=== PATIENT | male | born 1945 | race Caucasian/White ===

== ENCOUNTER 2016-12-25 18:22 | Outpatient (CLI) | payer OTHER | END 2016-12-25 18:23 | disposition home or self-care (01) | DX: C61 Malignant neoplasm of prostate (principal) ==

== ENCOUNTER 2017-12-29 09:05 | Outpatient (CLI) | payer MEDICARE, OTHER ==
[2017-12-29 09:42] LABS: HB2 TOTAL 16.6 g/dL; HEMOGLOBIN A1C 0.64 g/dL; HEMOGLOBIN A1C % 5.7 % (4.6-6.2)
[2017-12-29 09:53] LABS: ALBUMIN 4.3 g/dL (3.2-5.5); ALBUMIN/GLOBULIN RATIO 1.7 (1.0-2.2); ALKALINE PHOSPHATASE 29 IU/L (42-121); ALT ALANINE AMINOTRANSFERASE 17 IU/L (10-60); AST ASPARTATE AMINOTRANSFERASE 22 IU/L (10-42); BILIRUBIN,TOTAL 1.7 mg/dL (0.2-1.0); BUN - BLOOD UREA NITROGEN 15 mg/dL (6-20); CALCIUM 9.3 mg/dL (8.5-10.3); CARBON DIOXIDE - CO2 23 mmol/L (21-32); CHLORIDE 106 mmol/L (101-111); CHOL/HDL RATIO 4.1 (<5.0); CHOLESTEROL 172 mg/dL; CREATININE 1.1 mg/dL (0.6-1.2); GFR - MDRD 66 (>89); GLUCOSE 117 mg/dL (70-100); HDL CHOLESTEROL 42 mg/dL; LDL CHOLESTEROL,CALCULATED 118 mg/dL; LDL/HDL RATIO 2.8 (<3.6); SODIUM 137 mmol/L (135-145); TOTAL PROTEIN 6.9 g/dL (6.7-8.2); VLDL CHOLESTEROL 12 mg/dL
== END 2017-12-29 09:06 | disposition home or self-care (01) ==
LOC: LAB 09:05
PROVIDERS: ATTEND Family Medicine
DX: I10 Essential (primary) hypertension (principal); E03.9 Hypothyroidism, unspecified; R73.9 Hyperglycemia, unspecified; C61 Malignant neoplasm of prostate
CPT/HCPCS: 36415; 80053; 80061; 83036; 83721; 84153; 84443

== ENCOUNTER 2018-07-18 10:52 | Outpatient (CLI) | payer OTHER ==
[2018-07-18 19:15] LABS: HB2 TOTAL 17.6 g/dL; HEMOGLOBIN A1C 0.66 g/dL; HEMOGLOBIN A1C % 5.6 % (4.6-6.2)
[2018-07-18 19:24] LABS: ALBUMIN 4.4 g/dL (3.2-5.5); ALBUMIN/GLOBULIN RATIO 2.4 (1.0-2.2); ALKALINE PHOSPHATASE 34 IU/L (42-121); ALT ALANINE AMINOTRANSFERASE 23 IU/L (10-60); AST ASPARTATE AMINOTRANSFERASE 25 IU/L (10-42); BILIRUBIN,TOTAL 1.3 mg/dL (0.2-1.0); BUN - BLOOD UREA NITROGEN 19 mg/dL (6-20); CALCIUM 9.4 mg/dL (8.5-10.3); CARBON DIOXIDE - CO2 24 mmol/L (21-32); CHLORIDE 106 mmol/L (101-111); CHOLESTEROL 154 mg/dL; CREATININE 0.4 mg/dL (0.6-1.2); GFR - MDRD 213 (>89); GLUCOSE 116 mg/dL (70-100); HDL CHOLESTEROL 51 mg/dL; LDL CHOLESTEROL,CALCULATED 92 mg/dL; LDL/HDL RATIO 1.8 (<3.6); SODIUM 138 mmol/L (135-145); TOTAL PROTEIN 6.2 g/dL (6.7-8.2); VLDL CHOLESTEROL 11 mg/dL
== END 2018-07-18 10:53 | disposition home or self-care (01) ==
LOC: LAB.WCP 10:52
PROVIDERS: ATTEND Family Medicine
DX: R73.9 Hyperglycemia, unspecified (principal); I10 Essential (primary) hypertension; E03.9 Hypothyroidism, unspecified
CPT/HCPCS: 36415; 80053; 80061; 83036; 83721; 84443

== ENCOUNTER 2018-09-19 09:07 | Outpatient (CLI) | payer OTHER ==
[2018-09-19 15:16] LABS: BASOPHILS # (AUTO) 0.1 10^3/uL (0.0-0.1); BASOPHILS % (AUTO) 0.8 %; EOSINOPHILS # (AUTO) 0.2 10^3/uL (0.0-0.7); HGB - HEMOGLOBIN 15.7 g/dL (14.0-18.0); LYMPHOCYTES # (AUTO) 1.9 10^3/uL (1.5-3.5); MEAN CORPUSCULAR HEMOGLOBIN 32.5 pg (27.0-31.0); MEAN CORPUSCULAR HGB CONC 34.6 g/dL (32.0-36.0); MEAN CORPUSCULAR VOLUME 93.7 fL (80.0-94.0); MEAN PLATELET VOLUME 8.8 fL (7.4-11.4); MONOCYTES # (AUTO) 0.7 10^3/uL (0.0-1.0); MONOCYTES % (AUTO) 9.3 %; NEUTROPHILS % (AUTO) 62.9 %; PLT - PLATELET COUNT 201 10^3/uL (130-450); RED BLOOD COUNT 4.83 10^6/uL (4.70-6.10); RED CELL DISTRIBUTION WIDTH 14.1 % (12.0-15.0); WHITE BLOOD COUNT 7.9 x10^3/uL (4.8-10.8)
== END 2018-09-19 09:08 | disposition home or self-care (01) ==
LOC: LAB.WCP 09:07
PROVIDERS: ATTEND Internal Medicine Gastroenterology
DX: Z85.46 Personal history of malignant neoplasm of prostate (principal)
CPT/HCPCS: 36415; 85025

== ENCOUNTER 2018-09-29 09:14 | Day surgery (SDC) | payer OTHER ==
[2018-09-29] MEDS ORDERED: LACTATED RINGERS 1,000 ML IV ONE (09:41)
[2018-09-29] MEDS ORDERED: fentaNYL 250 MCG/5 ML VIAL IVP ONE (10:34)
[2018-09-29] MEDS ORDERED: MIDAZOLAM 2 MG/2 ML VIAL IVP ONE (10:34)
[2018-09-29 11:33] VITALS: BP 108/72
== END 2018-09-29 09:15 | disposition home or self-care (01) ==
LOC: SDS 09:14
PROVIDERS: ATTEND Internal Medicine Gastroenterology
PROC: 0DBN8ZZ Excision of Sigmoid Colon, Via Natural or Artificial Opening Endoscopic (ICD-10-PCS; 2018-09-29)
PROC: 0DBK8ZZ Excision of Ascending Colon, Via Natural or Artificial Opening Endoscopic (ICD-10-PCS; principal; 2018-09-29 10:30)
DX: Z12.11 Encounter for screening for malignant neoplasm of colon (principal); D12.2 Benign neoplasm of ascending colon; D12.5 Benign neoplasm of sigmoid colon; N40.1 Benign prostatic hyperplasia with lower urinary tract symptoms; N52.9 Male erectile dysfunction, unspecified; E03.9 Hypothyroidism, unspecified; Z85.46 Personal history of malignant neoplasm of prostate; Z87.891 Personal history of nicotine dependence
CPT/HCPCS: 45380; J3010; J7120

== ENCOUNTER 2018-12-13 10:58 | Emergency (ER) | payer OTHER ==
--- NOTE | 2018-12-13 11:15 | ED Physician Documentation ---
PD HPI UPPER EXT INJURY - Stated complaint Stated Complaint: R HAND FING INJ - Chief complaint Chief Complaint: Ext Problem - History obtained from History obtained from: Patient - History of Present Illness Location: Right, Finger (he fell and jammed fingertips into ground as he fell, with pain at index/middle/ring fingers but deformity and laceration at the middle one.) Where injury occurred: Other (hiking [place] trail) Timing - onset: Today Timing - details: Abrupt onset, Still present Worsened by: Moving Associated symptoms: No: Weakness, Numbness Contributing factors: No: Anticoagulated Similar symptoms before: Has not had sx before Recently seen: Not recently seen Review of Systems Skin: reports: Laceration (s) Neurologic: denies: Focal weakness, Numbness, Altered mental status, Head injury PD PAST MEDICAL HISTORY - Past Medical History Cardiovascular: None Respiratory: None : Benign prostate hypertrophy - Present Medications Home Medications: Ambulatory Orders Medication Instructions Recorded Confirmed Clotrimazole/Betamethasone Dip 15 gm TP BID PRN 09/28/18 09/28/18 [Clotrimazole-Betamethasone Crm] Tadalafil [Cialis] 20 mg PO ONCE PRN 09/28/18 09/28/18 Tamsulosin HCl [Flomax] 0.8 mg PO DAILY 09/28/18 09/29/18 Thyroid,Pork [[place] Thyroid] 30 mg PO DAILY 09/28/18 09/29/18 Cephalexin [Keflex] 500 mg PO QID #20 capsule 12/13/18 Hydrocodone/Acetaminophen [[place] 1 each PO Q6H PRN #15 tablet 12/13/18 5-325 Tablet] - Allergies Allergies/Adverse Reactions: Allergies Allergy/AdvReac Type Severity Reaction Status Date / Time No Known Drug Allergies Allergy Verified 09/28/18 14:12 PD ED PE NORMAL - Vitals Vital signs reviewed: Yes - General General: Alert and oriented X 3, Well developed/nourished, Other (finger is in pain) - Neck Neck: Supple, no meningeal sign, No adenopathy - Cardiac Cardiac: RRR, No murmur - Respiratory Respiratory: Clear bilaterally - Abdomen Abdomen: Soft, Non tender - Derm Derm: Normal color, Warm and dry - Extremities Extremities: Other (right fingers with deformity c/w dislocation at middle finger PIP joint. Open laceration with tendons visible volar crease of the joint. Tendons intact and are seen moving as he tries to flex. Good color and cap refill at tip. The nidex and ring fingers are tender at IP joints but have good ROM. ) - Neuro Neuro: Alert and oriented X 3, No motor deficit, No sensory deficit Results - Vitals Vitals: Oxygen O2 Source Room air - Rads (name of study) right middle finger Radiology: Prelim report reviewed (dislocation PIP with small avulsion fracture at corner. ) Procedures - Laceration (location) right middle finger Length in cm: 1.5 Wound type: Linear, Contaminated (there is some mild dirt noted on surface, which is cleansed and irrigated prior to finger reduction. It is cleansed and irrigated again prior to closure. There is good visibility of the flexor tendon and it is moving/intact with flex/ext after reduction of the dislocation. No contamination further seen.) Neurovascular status: Sensory intact, Motor intact Anesthesia: Marcaine 0.5% (digital block) Wound Preparation: Irrigated copiously NS, Wound explored, To the base Skin layer closure: Nylon, Running, Size #-0 - enter number (4) Other: Patient tolerated well, No complications, Neurovascular intact, Dressing applied, Tetanus UTD Complexity: Simple - Reduction Body part reduced: Right, Finger Fracture or dislocation: Dislocation Anesthesia: Digital block Reduction aftercare: NV intact, Alignment improved, Splint applied, Patient tolerated well PD MEDICAL DECISION MAKING - ED course Complexity details: reviewed results, considered differential, d/w patient Departure - Departure Disposition: 01 Home, Self Care Clinical Impression: Finger laceration Qualifiers: Encounter type: initial encounter Finger: middle finger Damage to nail status: without damage Foreign body presence: without foreign body Laterality: right Qualified Code(s): S61.212A - Laceration without foreign body of right middle finger without damage to nail, initial encounter Finger dislocation Qualifiers: Encounter type: initial encounter Qualified Code(s): S63.259A - Unspecified dislocation of unspecified finger, initial encounter Accidental fall Qualifiers: Encounter type: initial encounter Qualified Code(s): W19.XXXA - Unspecified fa ll, initial encounter Condition: Stable Record reviewed to determine appropriate education?: Yes Instructions: ED Dislocation Finger Redu Follow-Up: Janes Lentz MD [Primary Care Provider] - [facility] [Provider Group] Prescriptions: Cephalexin [Keflex] 500 mg PO QID #20 capsule Hydrocodone/Acetaminophen [[place] 5-325 Tablet] 1 each PO Q6H PRN #15 tablet PRN Reason: Pain Comments: Finger splint to protect that joint most of the time for the next month. You can have it unsplinted for showering and cleaning and when rested. Have it splinted for any times of activity to protect it. Use some ibuprofen or naproxen for inflammation and pain. Add Tylenol or hydrocodone if needed for pain. It should hurt the most over the first several days and then decrease. Cephalexin 4 times a day for 5 days to reduce the chance of infection. Follow- up with orthopedics in about a week, call tomorrow or today for an appointment. Want to make sure the ligaments are healing up well so that you have normal function. The tendons did not seem to be injured. It is okay to wash and shower. Clean off the wound twice a day with soap and water, or peroxide and water. Apply some antibiotic ointment to it to keep it moist. Also to watch for signs of infection such as purulence, redness or increasing pain. Return to your primary care or the ER at the specified time for suture removal. Suture removal 8-10 days Discharge Date/Time: 12/13/18 12:46
--- NOTE | 2018-12-13 11:39 | XRAY Report ---
Reason: fall injury, open dislocation Procedure Date: 12/13/2018 Accession Number: [id number] / [id number] Procedure: XR - Finger(s) RT CPT Code: FULL RESULT: EXAM: RIGHT THIRD DIGIT RADIOGRAPHY EXAM DATE: 12/13/2018 11:24 AM. CLINICAL HISTORY: Fall injury, open dislocation. COMPARISON: None. TECHNIQUE: 3 views. FINDINGS: Bones: The third proximal interphalangeal joint is subluxed with the distal phalanx superiorly translated, and laterally subluxed by 5 mm with overall 5 mm of foreshortening. Joints: Normal. No subluxations. Soft Tissues: Marked soft tissue swelling of the third digit. IMPRESSION: Known dislocation of the third digit as described. RADIA
[2018-12-13] MEDS ORDERED: cephALEXin 250 MG CAPSULE PO STA (12:06)
[2018-12-13 12:46] VITALS: BP 137/70
== END 2018-12-13 12:46 | disposition home or self-care (01) ==
LOC: ED 10:58
DX: S63.282A Dislocation of proximal interphalangeal joint of right middle finger, initial encounter (principal); S61.212A Laceration without foreign body of right middle finger without damage to nail, initial encounter; W01.0XXA Fall on same level from slipping, tripping and stumbling without subsequent striking against object, initial encounter; Y93.01 Activity, walking, marching and hiking; Y92.821 Forest as the place of occurrence of the external cause
CPT/HCPCS: 12001; 26770; 73140; 99283; A9270; 26605

== ENCOUNTER 2018-12-26 08:42 | Outpatient (CLI) | payer OTHER ==
[2018-12-26 13:23] LABS: BASOPHILS # (AUTO) 0.1 10^3/uL (0.0-0.1); BASOPHILS % (AUTO) 0.7 %; EOSINOPHILS # (AUTO) 0.3 10^3/uL (0.0-0.7); EOSINOPHILS % (AUTO) 3.2 %; HGB - HEMOGLOBIN 15.2 g/dL (14.0-18.0); LYMPHOCYTES # (AUTO) 1.7 10^3/uL (1.5-3.5); LYMPHOCYTES % (AUTO) 21.1 %; MEAN CORPUSCULAR HEMOGLOBIN 31.4 pg (27.0-31.0); MEAN CORPUSCULAR VOLUME 92.4 fL (80.0-94.0); MEAN PLATELET VOLUME 8.5 fL (7.4-11.4); MONOCYTES # (AUTO) 0.8 10^3/uL (0.0-1.0); MONOCYTES % (AUTO) 9.3 %; NEUTROPHILS # (AUTO) 5.4 10^3/uL (1.5-6.6); NEUTROPHILS % (AUTO) 65.7 %; PLT - PLATELET COUNT 218 10^3/uL (130-450); RED BLOOD COUNT 4.83 10^6/uL (4.70-6.10); RED CELL DISTRIBUTION WIDTH 13.3 % (12.0-15.0); WHITE BLOOD COUNT 8.2 x10^3/uL (4.8-10.8)
[2018-12-26 13:41] LABS: ALBUMIN 4.2 g/dL (3.2-5.5); ALBUMIN/GLOBULIN RATIO 1.6 (1.0-2.2); ALKALINE PHOSPHATASE 34 IU/L (42-121); ALT ALANINE AMINOTRANSFERASE 20 IU/L (10-60); AST ASPARTATE AMINOTRANSFERASE 21 IU/L (10-42); BILIRUBIN,TOTAL 1.5 mg/dL (0.2-1.0); BUN - BLOOD UREA NITROGEN 23 mg/dL (6-20); CALCIUM 9.8 mg/dL (8.5-10.3); CARBON DIOXIDE - CO2 28 mmol/L (21-32); CHLORIDE 109 mmol/L (101-111); CHOLESTEROL 194 mg/dL; GFR - MDRD 74 (>89); GLUCOSE 133 mg/dL (70-100); HDL CHOLESTEROL 48 mg/dL; LDL CHOLESTEROL,CALCULATED 133 mg/dL; LDL/HDL RATIO 2.8 (<3.6); SODIUM 144 mmol/L (135-145); TOTAL PROTEIN 6.9 g/dL (6.7-8.2); VLDL CHOLESTEROL 13 mg/dL
== END 2018-12-26 23:59 ==
LOC: LAB.WCP 08:42
PROVIDERS: ATTEND Family Medicine
DX: E03.9 Hypothyroidism, unspecified (principal); Z85.46 Personal history of malignant neoplasm of prostate
CPT/HCPCS: 36415; 80053; 80061; 83721; 84153; 84443; 85025

== ENCOUNTER 2019-02-22 10:55 | Outpatient (CLI) | payer OTHER ==
[2019-02-22 19:15] LABS: HB2 TOTAL 16.5 g/dL; HEMOGLOBIN A1C 0.6 g/dL; HEMOGLOBIN A1C % 5.5 % (4.6-6.2)
== END 2019-02-22 10:56 | disposition home or self-care (01) ==
LOC: LAB.WCP 10:55
PROVIDERS: ATTEND Family Medicine
DX: Z13.1 Encounter for screening for diabetes mellitus (principal)
CPT/HCPCS: 36415; 83036

== ENCOUNTER 2019-08-22 08:00 | Outpatient (CLI) | payer OTHER ==
[2019-08-22 13:37] LABS: BASOPHILS % (AUTO) 0.5 %; EOSINOPHILS # (AUTO) 0.2 10^3/uL (0.0-0.7); EOSINOPHILS % (AUTO) 2.9 %; HGB - HEMOGLOBIN 14.9 g/dL (14.0-18.0); LYMPHOCYTES # (AUTO) 1.4 10^3/uL (1.5-3.5); LYMPHOCYTES % (AUTO) 21.7 %; MEAN CORPUSCULAR HEMOGLOBIN 30.5 pg (27.0-31.0); MEAN CORPUSCULAR HGB CONC 32.5 g/dL (32.0-36.0); MEAN CORPUSCULAR VOLUME 93.7 fL (80.0-94.0); MEAN PLATELET VOLUME 10.4 fL (7.4-11.4); MONOCYTES # (AUTO) 0.8 10^3/uL (0.0-1.0); NEUTROPHILS # (AUTO) 4.2 10^3/uL (1.5-6.6); NEUTROPHILS % (AUTO) 62.4 %; PLT - PLATELET COUNT 220 10^3/uL (130-450); RED BLOOD COUNT 4.89 10^6/uL (4.70-6.10); RED CELL DISTRIBUTION WIDTH 14.2 % (12.0-15.0); WHITE BLOOD COUNT 6.7 x10^3/uL (4.8-10.8)
[2019-08-22 14:03] LABS: ALBUMIN 4.1 g/dL (3.2-5.5); ALBUMIN/GLOBULIN RATIO 1.5 (1.0-2.2); BILIRUBIN,TOTAL 1.3 mg/dL (0.2-1.0); CALCIUM 9.3 mg/dL (8.5-10.3); CREATININE 1.1 mg/dL (0.6-1.2); TOTAL PROTEIN 6.9 g/dL (6.7-8.2)
[2019-08-22 14:13] LABS: HEMOGLOBIN A1C 0.6 g/dL; HEMOGLOBIN A1C % 5.8 % (4.6-6.2)
[2019-08-22 14:14] LABS: CREATININE,URINE 224.5 mg/dL; PROTEIN/CREATININE RATIO,URINE 0.1 (<=0.2)
[2019-08-22 14:47] LABS: THYROID STIMULATING HORMONE 3.58 uIU/mL (0.34-5.60)
[2019-08-22 14:51] LABS: FREE T4 (FREE THYROXINE) 0.93 ng/dL (0.58-1.64)
== END 2019-08-22 23:59 | disposition home or self-care (01) ==
LOC: LAB.WCP 08:00
PROVIDERS: ATTEND Family Medicine
DX: E03.9 Hypothyroidism, unspecified (principal)
CPT/HCPCS: 36415; 80053; 82570; 83036; 84156; 84439; 84443; 84481; 85025

== ENCOUNTER 2019-10-26 10:12 | Outpatient (CLI) | payer OTHER ==
[2019-10-26 13:03] LABS: THYROID STIMULATING HORMONE 4.6 uIU/mL (0.34-5.60)
[2019-10-26 13:05] LABS: FREE T4 (FREE THYROXINE) 0.8 ng/dL (0.58-1.64)
== END 2019-10-26 23:59 | disposition home or self-care (01) ==
LOC: LAB.WCP 10:12
PROVIDERS: ATTEND Family Medicine
DX: E03.9 Hypothyroidism, unspecified (principal)
CPT/HCPCS: 36415; 84439; 84443; 84481

== ENCOUNTER 2019-12-07 10:31 | Outpatient (CLI) | payer OTHER | END 2019-12-07 23:59 | disposition home or self-care (01) | LOC: LAB.WCP 10:31 | PROVIDERS: ATTEND Urology | DX: R31.0 Gross hematuria (principal); Z85.46 Personal history of malignant neoplasm of prostate | CPT/HCPCS: 36415; 82565; 84153; 84520 ==

== ENCOUNTER 2019-12-11 07:31 | Outpatient (CLI) | payer OTHER ==
[2019-12-11] MEDS ORDERED: IOVERSOL 320 100 ML VIAL IVP ONE ×2 (07:41→08:07)
--- NOTE | 2019-12-12 11:17 | CT Report ---
Reason: GROSS HEMATURIA Procedure Date: 12/11/2019 Accession Number: [id number] / [id number] Procedure: CT - IVP CPT Code: Final Report FULL RESULT: EXAM: CT ABDOMEN AND PELVIS WITHOUT AND WITH CONTRAST (CT IVP) EXAM DATE: 12/11/2019 08:28 AM. CLINICAL HISTORY: Gross hematuria. COMPARISONS: None. TECHNIQUE: Routine helical imaging was performed through the kidneys, ureters and bladder in the precontrast, postcontrast and delayed phase. IV Contrast: 100 mL Optiray 320. Reconstructions: Coronal and sagittal. In accordance with CT protocol optimization, one or more of the following dose reduction techniques were utilized for this exam: automated exposure control, adjustment of mA and/or KV based on patient size, or use of iterative reconstructive technique. FINDINGS: Lung Bases: Several calcified granulomas. A tiny 2 mm noncalcified right middle lobe nodule adjacent to major fissure. Liver: Coarse posterior right lower lobe calcifications are probably from remote granulomatous disease. No enhancing liver mass. Gallbladder/Bile Ducts: Unremarkable. Spleen: Normal. Pancreas: Normal. Adrenal Glands: Normal. Kidneys/Bladder: Right Kidney/Ureter: No renal or ureteral stones. No hydronephrosis or hydroureter. No masses. Left Kidney/Ureter: No renal or ureteral stones. No hydronephrosis or hydroureter. No masses. Bladder: No stones. No wall thickening or mass. Peritoneal Cavity/Bowel: Hepatic flexure evaluation limited by under distention. Potential segmental wall thickening measuring 7 mm in depth on noncontrast series 5, slightly less apparent on split bolus postcontrast series 8. Normal appendix. Moderate transverse colonic stool. Pelvic Organs: Brachytherapy seeds within and adjacent to prostate gland. Unremarkable bladder. Vasculature: No aneurysms or other significant abnormality. Bones: Degenerative changes in visualized spine. Other: None. IMPRESSION: 1. No CT evidence for urinary tract masses, stones or obstruction. Consider cystoscopy if clinically warranted. 2. Brachytherapy prostate seeds. 3. Limited CT evaluation of hepatic flexure of the colon. This region is under distended which could be from peristalsis or potentially mass. Finding is somewhat more apparent on the initial noncontrast series, compared to postcontrast series several minutes later. If patient has not had recent colonoscopy, consider colonoscopy to further assess. 4. Calcified granulomas at both lung bases. A tiny 2 mm noncalcified right middle lobe lung nodule. Consider optional 12-month follow-up noncontrast chest CT. RADIA
== END 2019-12-11 07:32 | disposition home or self-care (01) ==
LOC: DI 07:31
PROVIDERS: ATTEND Urology
DX: R31.0 Gross hematuria (principal); J84.10 Pulmonary fibrosis, unspecified; R91.1 Solitary pulmonary nodule
CPT/HCPCS: 74178; Q9967

== ENCOUNTER 2020-03-04 08:00 | Outpatient (CLI) | payer OTHER ==
[2020-03-04 18:01] LABS: ALBUMIN 4.1 g/dL (3.2-5.5); ALBUMIN/GLOBULIN RATIO 1.7 (1.0-2.2); BASOPHILS % (AUTO) 0.6 %; BILIRUBIN,TOTAL 1.4 mg/dL (0.2-1.0); CALCIUM 9.4 mg/dL (8.5-10.3); CREATININE 1.1 mg/dL (0.6-1.2); EOSINOPHILS # (AUTO) 0.2 10^3/uL (0.0-0.7); EOSINOPHILS % (AUTO) 2.7 %; HGB - HEMOGLOBIN 14.9 g/dL (14.0-18.0); LYMPHOCYTES # (AUTO) 2.1 10^3/uL (1.5-3.5); MEAN CORPUSCULAR HEMOGLOBIN 32.3 pg (27.0-31.0); MEAN CORPUSCULAR HGB CONC 34.3 g/dL (32.0-36.0); MEAN CORPUSCULAR VOLUME 94.2 fL (80.0-94.0); MEAN PLATELET VOLUME 10.2 fL (7.4-11.4); MONOCYTES # (AUTO) 0.7 10^3/uL (0.0-1.0); MONOCYTES % (AUTO) 10.1 %; NEUTROPHILS # (AUTO) 4.1 10^3/uL (1.5-6.6); NEUTROPHILS % (AUTO) 57.3 %; PLT - PLATELET COUNT 214 10^3/uL (130-450); RED BLOOD COUNT 4.62 10^6/uL (4.70-6.10); TOTAL PROTEIN 6.5 g/dL (6.7-8.2); WHITE BLOOD COUNT 7.1 x10^3/uL (4.8-10.8)
== END 2020-03-04 23:59 | disposition home or self-care (01) ==
LOC: LAB.WCP 08:00
PROVIDERS: ATTEND Family Medicine
DX: R61 Generalized hyperhidrosis (principal); N52.9 Male erectile dysfunction, unspecified
CPT/HCPCS: 36415; 80053; 81599; 82672; 84270; 84402; 84403; 84443; 85025

== ENCOUNTER 2020-06-11 13:20 | Outpatient (CLI) | payer OTHER ==
[2020-06-11 18:19] LABS: HGB - HEMOGLOBIN 14.6 g/dL (14.0-18.0); MEAN CORPUSCULAR HEMOGLOBIN 31.3 pg (27.0-31.0); MEAN CORPUSCULAR HGB CONC 33.1 g/dL (32.0-36.0); MEAN CORPUSCULAR VOLUME 94.4 fL (80.0-94.0); MEAN PLATELET VOLUME 10.5 fL (7.4-11.4); RED BLOOD COUNT 4.67 10^6/uL (4.70-6.10); RED CELL DISTRIBUTION WIDTH 13.7 % (12.0-15.0); WHITE BLOOD COUNT 8.4 x10^3/uL (4.8-10.8)
[2020-06-11 18:38] LABS: URIC ACID 4.3 mg/dL (2.6-7.2)
[2020-06-11 18:55] LABS: CRP - C-REACTIVE PROTEIN < 1.0 mg/dL (0-1.0)
[2020-06-11 19:15] LABS: RHEUMATOID FACTOR NEGATIVE (Negative)
[2020-06-13 13:01] LABS: DNA (DS) ANTIBODY <1 IU/mL
[2020-06-13 20:42] LABS: CYCLIC CITRULL PEPTIDE CCP IGG <16 UNITS
== END 2020-06-11 23:59 | disposition home or self-care (01) ==
LOC: LAB.WCP 13:20
PROVIDERS: ATTEND Family Medicine
DX: M25.50 Pain in unspecified joint (principal)
CPT/HCPCS: 36415; 84550; 85027; 85651; 86038; 86140; 86200; 86225; 86430

== ENCOUNTER → 2020-07-03 | Outpatient (CLI) | payer OTHER ==
--- NOTE | 2020-07-03 16:09 | XRAY Report ---
PROCEDURE: Hand 2 View BILAT INDICATIONS: JOINT PAIN TECHNIQUE: 2 views of the hand(s) acquired. COMPARISON: FINDINGS: Bones: No fractures or dislocations. No suspicious bony lesions. Scattered IP degenerative narrowi ng is noted bilaterally with minimal to mild first CMC degenerative narrowing. There are no definitiv e erosions or periarticular osteophytes. Soft tissues: No suspicious soft tissue calcifications. IMPRESSION: Scattered IP degenerative narrowing suggestive of osteoporosis. Reviewed by: Natalia Mccray MD on 07/03/2020 4:08 PM PDT Approved by: Natalia Mccray MD on 07/03/2020 4:08 PM PDT Station ID: [id number]
== END ==
LOC: DI.WCP 10:27
PROVIDERS: ATTEND Family Medicine
DX: M19.042 Primary osteoarthritis, left hand (principal); M19.041 Primary osteoarthritis, right hand

== ENCOUNTER 2020-07-26 08:00 | Outpatient (CLI) | payer OTHER ==
[2020-07-27 13:41] LABS: HIV AG/AB 4TH GEN NON-REACTIVE (NON-REACTIVE)
== END 2020-07-26 23:59 | disposition home or self-care (01) ==
LOC: LAB.WCP 08:00
PROVIDERS: ATTEND Family Medicine
DX: M60.9 Myositis, unspecified (principal); M25.50 Pain in unspecified joint; R61 Generalized hyperhidrosis; Z20.828 Contact with and (suspected) exposure to other viral communicable diseases
CPT/HCPCS: 36415; 80074; 81599; 82550; 86592; 87389

== ENCOUNTER 2020-10-07 07:00 | Outpatient (CLI) | payer OTHER | END 2020-10-07 23:59 | disposition home or self-care (01) | LOC: LAB.R 07:00 | PROVIDERS: ATTEND Nurse Practitioner | DX: Z11.3 Encounter for screening for infections with a predominantly sexual mode of transmission (principal) | CPT/HCPCS: 87491; 87591; 87661 ==